=== PATIENT | female | born 1985 | race Caucasian/White ===

== ENCOUNTER 2023-04-18 10:44 | Day surgery (SDC) | payer MEDICAID ==
[~2023-04-18] VITALS: Ht 152.4 cm; Wt 45.4 kg
[2023-04-18] MEDS ORDERED: ACETAMINOPHEN 100 ML IV ONE (11:30)
[2023-04-18] MEDS ORDERED: PROPOFOL 200 MG/20 ML VIAL IV ONE ×2 (11:36→11:53)
[2023-04-18] MEDS ORDERED: MIDAZOLAM 2 MG/2 ML VIAL ONE (11:37)
[2023-04-18] MEDS ORDERED: fentaNYL citrate 0.05 MG/ML VIAL ONE (11:37)
[2023-04-18] MEDS ORDERED: ONDANSETRON 4 MG/2 ML VIAL ONE ×2 (11:47→11:50)
[2023-04-18] MEDS ORDERED: METHYLERGONOVINE 0.2 MG/ML AMP ONE (11:53)
== END 2023-04-18 14:30 | disposition home or self-care (01) ==
LOC: MDS 10:44 → MMU 10:45 → MDS 14:30
PROVIDERS: ATTEND Obstetrics & Gynecology
DX: O02.1 Missed abortion (principal); F41.9 Anxiety disorder, unspecified; Z79.899 Other long term (current) drug therapy
CPT/HCPCS: 59820; 88305; J2210; J2250; J2405; J2704; J3010